=== PATIENT | female | born 1990 | race Asian ===

== ENCOUNTER 2022-07-08 05:41 | Inpatient (IN) ==
--- NOTE | 2022-06-25 10:04 | Anesthesiology Consultation ---
Date of Service June 25, 2022 Assessment & Plan (1) Encounter for pre-operative examination: COVID screening: Per assessment on 06/25: No known COVID-19 positive contacts or current COVID-19 related symptoms. Travel screen negative. Patient vaccinated. At surgeon discretion if preop Covid testing being done. Chart Review Chart Review: entry level management initiated History Surgery Operation Date: 07/08/22 07:30 Proposed Procedures p Section (Delivery of Baby Through Abdominal Incision) - Shirley Wright MD Height/Weight Height: 5 ft 3 in Weight: 81 kg Allergies Allergy/AdvReac Type Severity Reaction Status Date / Time No Known Allergies Allergy Verified 06/25/22 09:26 Medications Home Medications Medication Instructions Recorded Confirmed Last Taken 2 tab PO QAM 06/25/22 06/25/22 Unknown clobetasol 0.05 % topical ointment 1 applic topical QAM PRN Rash 06/25/22 06/25/22 Unknown folic acid 5 mg-vitamin B complex 1 tab PO QAM 06/25/22 06/25/22 Unknown with C no.17 tablet Past Medical History Medical History Past Family History Family History Daughter , age 3 Leukemia Grandmother (Maternal) Cancer Grandfather (Paternal) Cancer Denies family history of Ovarian cancer Breast cancer Colorectal cancer Past Surgical History Surgical History S/P section S/P myomectomy x 2 Social History Smoking Status: Never smoker Do You Dip or Chew Tobacco: No Hx Alcohol Use: No Hx Substance Use: No substance use type: does not use Lab Results Anesthesia Preop Results Results Anesthesia Widget: Hgb 10.7 g/dl (12.0-16.0) L 05/12/22 Hct 33.4 % (34.1-44.9) L 05/12/22 Urine Color Yellow 05/06/22 Urine Appearance Clear (Clear) 05/06/22 Urine pH 7.0 (4.5-7.5) 05/06/22 Urine Specific [place] 1.004 (1.000-1.030) 05/06/22 Urine Protein Negative (Negative) 05/06/22 Urine Glucose (UA) Negative (Negative) 05/06/22 Urine Ketones Negative (Negative) 05/06/22 Urine Blood Trace (Negative) H 05/06/22 Urine Nitrite Negative (Negative) 05/06/22 Urine Bilirubin Negative (Negative) 05/06/22 Urine Urobilinogen Negative (Negative) 05/06/22 Urine Leukocyte Esterase Trace (Negative) H 05/06/22 Urine WBC (Auto) 1-5 /hpf (0-5) 05/06/22 Urine RBC (Auto) 0-4 /hpf (0-4) 05/06/22 Urine Hyaline Casts (Auto) 0 /lpf (0-5) 05/06/22 Urine Epithelial Cells (Auto) 20-30 /lpf (0-5) H 05/06/22 Urine Bacteria (Auto) Negative (Negative) 05/06/22
--- NOTE | 2022-07-07 17:12 | History & Physical Report ---
Date of Service July 07, 2022 Assessment & Plan (1) Previous delivery affecting , antepartum: (2) Uterine myoma: Plan Discussed indications, risks, benefits, alternatives with risks including infection, bleeding, injury to adjacent structures (bowel, bladder, ureters, blood vessels, nerves, baby), possible need for blood transfusion and/or life saving hysterectomy, VTE. Discussed increased likelihood of scar tissue given prior surgeries and risk of bleeding with her current fibroids. Consent reviewed in detail w/ pt and signed after all questions answered to her satisfaction. Will have T&C available History of Present Illness Chief Complaint: preop Primary Care Provider: NO PCP 32 y/o at 37 3/7 wga presents for pre-op for planned repeat cs at 37 4/7 wga due to hx prior myomectomy, declines tubal. +FM; denies ctx, LOF, VB. COVID+ so precautions taken. 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 , child passed from leukemia G2 2019 primary CS for LGA G3 current 12/2021 neg cotest denies hx STIs Allergies Allergy/AdvReac Type Severity Reaction Status Date / Time No Known Allergies Allergy Verified 07/07/22 09:52 Home Medications Medication Instructions Recorded Confirmed Type 2 tab PO QAM 06/25/22 07/07/22 History clobetasol 0.05 % topical ointment 1 applic topical QAM PRN Rash 06/25/22 07/07/22 History folic acid 5 mg-vitamin B complex 1 tab PO QAM 06/25/22 07/07/22 History with C no.17 tablet Patient History Medical History Surgical History S/P section S/P myomectomy x 2 Family History Daughter , age 3 Leukemia Grandmother (Maternal) Cancer Grandfather (Paternal) Cancer Denies family history of Ovarian cancer Breast cancer Colorectal cancer Social History Smoking Status: Never smoker Second Hand Exposure: No; Hx Alcohol Use: No Hx Substance Use: No Preferred Language: Sudanese Communication Ability: Effective Dice Spotter Required: Yes Beliefs That Will Affect Care: None marital status: marital status details: Rubens (32) [phone] Current Living Situation: Spouse and Family Current Living Situation Comment: lives with spouse, daughter, no pets current occupational status: unemployed 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 Feels Safe at Home: Yes Assistive Devices: Glasses Physical Exam Constitutional: WD/WN, vitals as above Respiratory: normal respiratory effort; no respiratory distress and no labored breathing Genitourinary: OB Exam Abdomen: + fundal height (39) and + heart tones (140s) Results & Data ([facility]) Laboratory Results OB Labs: Blood Type B Positive 12/31/21 Antibody Screen NEGATIVE 12/31/21 Hemoglobin 10.7 g/dl (12.0-16.0) L 05/12/22 Hematocrit 33.4 % (34.1-44.9) L 05/12/22 Mean Corpuscular Volume 89.0 fL (80-100) 12/31/21 Platelet Count 308 K/uL (130-400) 12/31/21 Rubella IgG Antibody Immune (Immune) 12/31/21 Rapid Plasma Reagin Nonreactive (Nonreactive) 12/31/21 Hepatitis B Surface Antigen Neg (Neg) 12/31/21 Hepatitis C Antibody Neg (Neg) 12/31/21 HIV (1&2) Ab and P24 Ag, 4th Gener Neg (Neg) 12/31/21 Glucose 1 Hour 50 gm Load 159 mg/dl (70-130) H 02/11/22 Maternal Serum Alpha Fetoprotein 47.3 ng/mL 02/18/22 OB Optional Labs: Chlamydia trachomatis RNA NOT DETECTED (NOT DETECTED) 12/31/21 Neisseria gonorrhoeae RNA NOT DETECTED (NOT DETECTED) 12/31/21 Alpha Fetoprotein Triple Screen SEE NOTE 02/18/22 Diagnostic Findings 06/03 EFW 94%, 2.5cm and 2.6cm fibroids seen anteriorly, anterior plac Coding Level of Care Code None Diagnoses Previous delivery affecting , antepartum O34.219 Uterine myoma D25.9
[2022-07-08] MEDS ORDERED: ceFAZolin 2,000 MG in SYRINGE 0 ML IV SCH (06:00)
[2022-07-08] MEDS ORDERED: LACTATED RINGER'S 1,000 ML IV SCH ×2 (06:00→12:01)
[2022-07-08 06:20] LABS: Basophils # (auto) 0.04 K/uL (0-0.2); Basophils % (auto) 0.5 %; Eosinophils # (auto) 0.13 K/uL (0-0.50); Eosinophils % (auto) 1.8 %; Hematocrit (blood only) 33.9 % (34.1-44.9); Hemoglobin 10.6 g/dl (12.0-16.0); Immature Granulocytes # (auto) 0.08 K/uL (0.00-0.02); Immature Granulocytes % (auto) 1.1 %; Lymphocytes # (auto) 1.19 K/uL (1.2-3.4); Lymphocytes % (auto) 16.3 %; Mean Corpuscular Hemoglobin 25.9 pg (25.0-34.0); Mean Corpuscular Hgb Conc 31.3 g/dL (32.0-36.0); Mean Corpuscular Volume 82.7 fL (80.0-100.0); Mean Platelet Volume 10.9 fL (9.4-12.3); Monocytes # (auto) 0.94 K/uL (0.24-0.82); Monocytes % (auto) 12.9 %; Neutrophils # (auto) 4.92 K/uL (1.4-6.5); Neutrophils % (auto) 67.4 %; Platelet Count 213 K/uL (130-400); RDW Standard Deviation 50.4 fL (36.4-46.3)
[2022-07-08] MEDS ORDERED: METHYLERGONOVINE MALEATE 0.2 MG/ML AMP ONE (06:50)
[2022-07-08] MEDS ORDERED: CITRIC ACID/SODIUM CITRATE 15 ML UDC PO ONE (06:58)
[2022-07-08] MEDS ORDERED: OXYTOCIN 10 UNITS/ML 10ML VIAL ONE (07:04)
[2022-07-08] MEDS ORDERED: MoRPHine SULFATE PF 1 MG/ML 10 ML AMP/VIAL ONE (07:16)
[2022-07-08] MEDS ORDERED: LIDOCAINE 2% MPF LOCAL 5 ML VIAL INFIL ONE (07:18)
[2022-07-08] MEDS ORDERED: ePHEDrine sulfate 50 MG/ML SYR ONE (07:18)
[2022-07-08] MEDS ORDERED: PHENYLEPHRINE 100MCG/ML 5ML SYR ONE (07:18)
[2022-07-08] MEDS ORDERED: SUCCINYLCHOLINE CHLORIDE 20 MG/ML 10 ML VIAL IV ONE (07:18)
[2022-07-08] MEDS ORDERED: PROPOFOL IV EMULSION 10 MG/ML 20 ML VIAL IV ONE (07:18)
[2022-07-08] MEDS ORDERED: METOCLOPRAMIDE HCL INJ 5 MG/ML 2 ML VIAL ONE (07:18)
[2022-07-08] MEDS ORDERED: ONDANSETRON INJ 2 MG/ML 2 ML VIAL ONE (07:18)
--- NOTE | 2022-07-08 07:31 | History & Physical Bridge Note ---
Date of Service July 08, 2022 History & Physical Bridge Note I have examined the patient, reviewed the History & Physical and in the interval since the performance of the History & Physical I have noted the following changes of clinical significance: no changes noted
[2022-07-08] MEDS ORDERED: diphenhydrAMINE 50 MG/ML VIAL IV PRN (08:28)
[2022-07-08] MEDS ORDERED: NALBUPHINE HCL INJ 10 MG/ML AMP IV PRN (08:28)
[2022-07-08] MEDS ORDERED: LACTATED RINGER'S 500 ML IV PRN (08:28)
[2022-07-08] MEDS ORDERED: NALOXONE HCL 1 MG in SODIUM CHLORIDE 0.9% 1000ML 1,000 ML IV PRN (08:28)
[2022-07-08] MEDS ORDERED: PROMETHAZINE HCL 12.5 MG in SODIUM CHLORIDE 0.9% 50 ML IV PRN (08:28)
[2022-07-08] MEDS ORDERED: NALOXONE HCL 0.4 MG/1 ML VIAL/CARP IV PRN (08:28)
[2022-07-08] MEDS ORDERED: NALOXONE HCL 0.08 MG in SYRINGE 1.8 ML IV PRN (08:28)
[2022-07-08] MEDS ORDERED: MoRPHine SULFATE PF 1 MG/ML 10 ML AMP/VIAL INT SPINAL ONE (08:28)
[2022-07-08] MEDS ORDERED: ONDANSETRON INJ 2 MG/ML 2 ML VIAL IV PRN (08:28)
[2022-07-08] MEDS ORDERED: MoRPHine SULFATE 2 MG/ML CARP IV PRN (08:28)
[2022-07-08] MEDS ORDERED: ePHEDrine sulfate 50 MG/ML AMP IV PRN (08:28)
[2022-07-08] MEDS ORDERED: DC INTRASPINAL MORPHINE SCH (08:30)
[2022-07-08] MEDS ORDERED: NO NARCOTICS OR SEDATIVES SCH (08:30)
[2022-07-08] MEDS ORDERED: SODIUM CHLORIDE 0.9% 1000ML 1,000 ML IV SCH (08:30)
--- NOTE | 2022-07-08 09:35 | Operative Report ---
PG Post Operative Report Pre & Post Diagnosis Pre-operative diagnosis: -Single intrauterine at 37 4/7 wga -Hx CS x 1 -Hx Myomectomy x 2 -Covid positive Post-operative diagnosis: -Same -Delivered I identified the patient and participated in the time-out.: Yes Procedure Operation Date: 07/08/22 07:30 Actual Procedures p Repeat Low Transverse Section in OR 1 for viable male at 0836 - Shirley Wright MD Surgeon Shirley Wright MD Folder Seamer MD Magaly Estimated Blood Loss 600 Findings Consistent with Post-Op Diagnosis Dense rectus adhesions. Normal anterior uterus with filmy bladder adhesions, left fallopian tube adhesed to left ovary, normal right fallopian tube and ovary. Posterior aspect of uterus with filmy bowel adhesions inferiorly. Viable male infant, weight pending, APGARS of 8 and 9 Fluids UOP 250cc by delong Specimens Cord blood, placenta Drains Delong draining clear urine Anesthesia Type Spinal Complications none Disposition Accompanied Patient To Recovery: Yes Disposition: L&D Indications 32 y/o at 37 4/7 wga presented for repeat CS due to history of CS x 1 and myomectomy x 2. Declines tubal ligation Description of Procedure The patient was taken to the operating room after consents were ensured. The patient was properly identified. Spinal anesthesia was obtained without difficulty. The patient was placed in a dorsal supine position with left lateral tilt, then prepped and draped in normal sterile fashion. Surgical time out was performed. Antibiotics were given for prophylaxis. Anesthesia was tested to ensure adequate surgical levels. Pfannenstiel skin incision was performed and carried down to the underlying fascia with a knife. The fascia was then nicked in the midline and extended laterally with pickups and Drake scissors. Superior portion of the fascia was grasped with Kochers x2 and elevated off the underlying rectus muscles using blunt and sharp dissection. Inferior portion of the fascia was then grasped with Bree clamps x2 and also elevated off the underlying muscles with blunt dissection. Midline was identified and rectus adhesions sharply dissected. The peritoneum was then entered sharply and extended to provide adequate room for de livery of baby. A hand was inserted into the abdomen, uterus was noted to have the filmy bladder adhesions as noted above. Right aspect of rectus was taken down with cautery to ensure adequate room for delivery. Bladder blade was inserted, bladder flap was created in the usual fashion. A low transverse uterine incision was made in the uterus and extended bluntly in a superior to inferior fashion. Amniotomy was made with clear fluid at the time of rupture. head was grasped and elevated through the hysterotomy in an atraumatic fashion. The baby delivered in RAULITO position, loose nuchal cord was reduced. Remainder of the body delivered without incident. Nose and mouth were bulb suctioned on the surgical field. The cord was double clamped and cut, baby was handed off to awaiting pediatrics staff. Cord segment and blood were obtained. Placenta was then expressed from the uterus. The uterus was exteriorized. Several passes were made inside the uterus to remove the remaining membranes. Attention was then turned to the hysterotomy, which was then closed with a running locked suture of 0 Vicryl on a CTX needle. An imbricating layer was then performed using 0-Monocryl. There was noted to be good hemostasis. The posterior cul-de-sac was then inspected. The hysterotomy was again inspected and noted to be hemostatic. The uterus was returned to the abdomen. The right and left pericolic gutters were cleaned of all clot and debris. The hysterotomy was again noted to be hemostatic. Space of Retzius was noted to be hemostatic. Kalia was applied to the hysterotomy and muscle. The fascia was then closed with a running suture of 0 Vicryl on a CT1 needle. Subcutaneous tissue was copiously irrigated and noted to be hemostatic. Subcutaneous tissue was re- approximated using 2-0 plain gut. The skin was then closed with a running suture of 3-0 Monocryl in a subcuticular fashion. At termination of the procedure, fundal pressure was applied and a moderate amount of lochia was expr essed. Pressure dressing was applied to the patient. She tolerated the procedure well. All sponge, needle, instrument counts were correct x 2. I attest to the content of the Intraoperative Record and any orders documented therein. Any exceptions are noted below. OB Procedure Charges 41861
[2022-07-08] MEDS: KETOROLAC 30 MG/ML VIAL IV PRN ×3 (10:45→23:42)
[2022-07-08] MEDS ORDERED: SENNA 8.6 MG TAB PO PRN (12:01)
[2022-07-08] MEDS ORDERED: BENZOCAINE 20% AER SPR 82.5 GM CAN EXT PRN (12:01)
[2022-07-08] MEDS ORDERED: DIPHTHERIA/TETANUS/PERTUSSIS 0.5 ML SYR/VIAL IM ONE (12:01)
[2022-07-08] MEDS ORDERED: MAGNESIUM HYDROXIDE SUSP 30 ML UDC PO PRN (12:01)
[2022-07-08] MEDS ORDERED: HYDROCORTISONE ACETATE 25 MG SUPP PR PRN (12:01)
[2022-07-08] MEDS ORDERED: OXYTOCIN 20 UNITS in LACTATED RINGER'S 1,000 ML IV SCH (12:15)
--- NOTE | 2022-07-08 13:07 | Anesthesiology Progress Note ---
Date of Service July 08, 2022 Anesthesia Post Procedure Vital Signs Vital Signs: Temp Pulse Pulse Resp BP Pulse Ox O2 Del Method 07/08/22 12:26 18 07/08/22 12:26 36.7 C 88 18 100 Room Air 07/08/22 11:23 36.5 C 20 07/08/22 10:23 36.5 C 20 07/08/22 10:23 36.5 C 20 07/08/22 10:13 21 07/08/22 10:03 15 07/08/22 09:53 16 07/08/22 09:43 16 07/08/22 09:33 18 07/08/22 09:23 36.5 C 20 07/08/22 11:42 85 100/59 L 07/08/22 11:38 91 H 100 07/08/22 11:33 100 07/08/22 11:33 91 H 07/08/22 11:33 88 99/60 L 07/08/22 11:28 85 100 07/08/22 11:23 91 H 98/56 L 100 07/08/22 11:18 85 100 07/08/22 11:13 95 H 99/60 L 100 07/08/22 11:08 83 100 07/08/22 11:03 100 07/08/22 11:03 83 07/08/22 11:03 91 H 99/64 L 07/08/22 10:58 82 100 07/08/22 10:53 86 100 07/08/22 10:54 86 106/64 07/08/22 10:48 89 100 07/08/22 10:46 81 106/61 07/08/22 10:43 90 89/57 L 100 07/08/22 10:38 86 100 07/08/22 10:33 100 07/08/22 10:33 80 07/08/22 10:33 78 94/54 L 07/08/22 10:28 79 100 07/08/22 10:25 86 101/59 L 07/08/22 10:23 81 100 07/08/22 10:18 79 100 07/08/22 10:13 88 109/78 100 07/08/22 10:08 96 H 100 07/08/22 10:03 100 07/08/22 10:03 77 07/08/22 10:03 83 104/59 L 07/08/22 09:58 76 100 07/08/22 09:53 100 07/08/22 09:53 79 07/08/22 09:53 75 101/59 L 07/08/22 09:48 77 99 07/08/22 09:44 78 100/52 L 07/08/22 09:43 79 99 07/08/22 09:38 81 100 07/08/22 09:33 100 07/08/22 09:33 79 07/08/22 09:33 82 100/62 07/08/22 09:28 81 100 07/08/22 09:23 100 07/08/22 09:23 80 07/08/22 09:23 79 112/56 L 07/08/22 07:24 81 103/68 07/08/22 05:54 36.6 C 94 H 18 115/63 07/08/22 06:02 18 Pain Intensity Lower Abdomen: Pain Intensity: 4 Transfer of Care Handoff Completed per policy Notes Mental Status: alert / awake / arousable Patient Amnestic to Procedure: Yes Nausea / Vomiting: adequately controlled Pain: adequately controlled Airway Patency, RR, SpO2: stable & adequate BP & HR: stable & adequate Hydration State: stable & adequate Neuraxial Anesthesia: was administered and sensory block is resolving Anesthetic Complications: no major complications apparent
[2022-07-08] MEDS: SIMETHICONE 80 MG CHEW PO SCH ×2 (17:15→20:27)
[2022-07-08] MEDS: DOCUSATE SODIUM 100 MG CAP PO SCH (20:27)
[2022-07-09] MEDS ORDERED: diphenhydrAMINE 50 MG/ML VIAL IV PRN (02:28)
[2022-07-09] MEDS ORDERED: diphenhydrAMINE Capsule 25 MG CAP PO PRN (02:28)
[2022-07-09] MEDS ORDERED: ONDANSETRON INJ 2 MG/ML 2 ML VIAL IV PRN (02:28)
[2022-07-09] MEDS ORDERED: PROMETHAZINE HCL 25 MG in SODIUM CHLORIDE 0.9% 50 ML IV PRN (02:28)
[2022-07-09] MEDS ORDERED: KETOROLAC 30 MG/ML VIAL IV PRN (02:28)
[2022-07-09 06:04] LABS: Basophils # (auto) 0.02 K/uL (0-0.2); Basophils % (auto) 0.2 %; Eosinophils # (auto) 0.18 K/uL (0-0.50); Eosinophils % (auto) 1.5 %; Hematocrit (blood only) 32.2 % (34.1-44.9); Hemoglobin 10.1 g/dl (12.0-16.0); Immature Granulocytes # (auto) 0.05 K/uL (0.00-0.02); Immature Granulocytes % (auto) 0.4 %; Lymphocytes % (auto) 8.6 %; Mean Corpuscular Hemoglobin 25.9 pg (25.0-34.0); Mean Corpuscular Hgb Conc 31.4 g/dL (32.0-36.0); Mean Corpuscular Volume 82.6 fL (80.0-100.0); Mean Platelet Volume 10.6 fL (9.4-12.3); Monocytes # (auto) 1.06 K/uL (0.24-0.82); Monocytes % (auto) 9.1 %; Neutrophils # (auto) 9.34 K/uL (1.4-6.5); Neutrophils % (auto) 80.2 %; Platelet Count 202 K/uL (130-400); RDW Coefficient of Variation 17.1 % (11.5-14.5); RDW Standard Deviation 50.8 fL (36.4-46.3); White Blood Count 11.65 K/ul (4.8-10.8)
[2022-07-09] MEDS: oxyCODONE/ACETAMINOPHEN 5mg/325mg TAB PO PRN ×3 (06:28→21:06)
[2022-07-09] MEDS: IBUPROFEN 600 MG TAB PO PRN ×3 (06:29→21:06)
--- NOTE | 2022-07-09 07:44 | Obstetrical Progress Note ---
Date of Service July 09, 2022 Assessment & Plan (1) Encounter for care and examination after delivery: 32 yo POD 1 from [facility], doing well -Meeting all pp milestones -B+/rubella immune/ -f/u 6 weeks for appt, continue rout pp care Subjective Ambulation: ambulating normally Voiding: no voiding problems Passing Gas:: Yes Diet Tolerance:: regular diet Lochia:: Small Feeding Type:: breast feeding Pain well managed with medication Review of Systems Denies fevers, chills, n/v, WALLACE, CP, SOB Physical Exam Constitutional WD/WN, vitals as above no acute distress Respiratory normal respiratory effort, lungs clear to auscultation Cardiovascular RRR, no murmur, no edema Gastrointestinal (Abdomen) Inspection/Auscultation: abdomen normal to inspection and + abdominal surgical incision (dressing c/d/i) Percussion/Palpation: + abdomen tender (appropriately tender) and abdomen soft fundus firm at umbilicus and NT Musculoskeletal BLE symmetric, nonerythematous, nontender Results & Data ([facility]) Vital Signs (Past 12 Hours) Vital Signs Temp Pulse Resp BP Pulse Ox O2 Del Method 07/09/22 02:35 98.8 F 93 H 16 109/60 98 Room Air 07/09/22 02:00 18 97 07/09/22 01:00 16 96 07/08/22 23:47 16 99 07/08/22 23:47 98.6 F 82 16 116/65 99 07/08/22 20:32 98.8 F 85 18 109/67 100 Room Air 07/08/22 20:32 18 99 07/08/22 21:23 18 100
[2022-07-09] MEDS: FERROUS SULFATE 325 MG TAB PO SCH (08:21)
[2022-07-09] MEDS: DOCUSATE SODIUM 100 MG CAP PO SCH ×2 (08:21→21:06)
[2022-07-09] MEDS: SIMETHICONE 80 MG CHEW PO SCH ×4 (08:21→21:06)
[2022-07-09] MEDS: PRENATAL VITAMIN 1 TAB PO SCH (08:21)
[2022-07-09] MEDS ORDERED: bisacodyL 5 MG TABEC PO SCH (20:00)
[2022-07-10] MEDS: oxyCODONE/ACETAMINOPHEN 5mg/325mg TAB PO PRN ×2 (03:52→12:14)
[2022-07-10] MEDS: IBUPROFEN 600 MG TAB PO PRN ×2 (03:52→12:13)
[2022-07-10 06:55] LABS: Hematocrit (blood only) 30.3 % (34.1-44.9); Hemoglobin 9.4 g/dl (12.0-16.0)
--- NOTE | 2022-07-10 08:44 | Obstetrical Progress Note ---
Date of Service July 10, 2022 Assessment & Plan (1) Encounter for care and examination after delivery: patient instructed to pad the incision so the binder is not rubbing against it. will discharge to home follow up in 6 weeks for post-op visit scripts sent to pharmacy Subjective Ambulation: ambulating normally Voiding: no voiding problems Passing Gas:: Yes Diet Tolerance:: regular diet Lochia:: Small Feeding Type:: breast feeding noticed some bleeding from incision but she is wearing abdominal binder that is rubbing against the incision. Review of Systems All systems reviewed & are unremarkable except as noted in HPI & below Physical Exam Constitutional WD/WN, vitals as above Gastrointestinal (Abdomen) normal bowel sounds, soft, nontender, no hepatosplenomegaly Inspection/Auscultation: + abdominal surgical incision (dry and intact nocellulitis) Psychiatric A+Ox3, euthymic affect Genitourinary OB Exam Abdomen: + fundal height Fundus: + firm and + relation to umbilicus (2 below ) Results & Data ([facility]) Vital Signs (Past 12 Hours) Vital Signs Temp Pulse Resp BP O2 Del Method 07/10/22 00:08 98.8 F 82 16 102/72 Room Air
[2022-07-10] MEDS: DOCUSATE SODIUM 100 MG CAP PO SCH (08:48)
[2022-07-10] MEDS: SIMETHICONE 80 MG CHEW PO SCH (08:49)
[2022-07-10] MEDS: FERROUS SULFATE 325 MG TAB PO SCH (08:49)
[2022-07-10] MEDS: PRENATAL VITAMIN 1 TAB PO SCH (08:49)
[2022-07-10] MEDS ORDERED: bisacodyL 10 MG SUPP PR PRN (09:27)
--- NOTE | 2022-07-12 08:21 | Discharge Summary ---
Date of Service July 12, 2022 Admission HPI Per Admitting Provider 32 y/o at 37 3/7 wga presents for pre-op for planned repeat cs at 37 4/7 wga due to hx prior myomectomy, declines tubal. +FM; denies ctx, LOF, VB. COVID+ so precautions taken. 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 , child passed from leukemia G2 2019 primary CS for LGA G3 current 12/2021 neg cotest denies hx STIs Admission Exam (Per Admitting) Respiratory normal respiratory effort; no respiratory distress and no labored breathing Genitourinary OB Exam Abdomen: + fundal height (39) and + heart tones (140s) Discharge Data Consultations 07/08/22 05:43 Consult Anesthesiology Stat Procedures Performed Operation Date: 07/08/22 07:30 Actual Procedures p Section in OR 1 for viable male infant at 0836 - Shirley Wright MD Hospital Course (1) Encounter for care and examination after delivery: (2) Previous delivery affecting , antepartum: (3) Uterine myoma: Plan 32 y/o at 37 4/7 wga presented for repeat CS due to history of CS x 1 and myomectomy x 2. See operative report for details. Post-operative course was uncomplicated and covid precautions taken throughout. She was discharged home on POD2 Coding Level of Care Code None Diagnoses Encounter for care and examination after delivery Z39.2 Previous delivery affecting , antepartum O34.219 Uterine myoma D25.9
== END 2022-07-10 15:08 | disposition home or self-care (01) | DRG 787 ==
LOC: 4S1 05:41 → EDSTATUS 07:30 → 4E1 12:28